=== PATIENT | female | born 1945 | race Caucasian/White ===

== ENCOUNTER 2022-03-09 09:31 | Inpatient (IN) ==
[2022-03-09] MEDS ORDERED: ALBUTEROL/IPRATROPIUM 3 ML NEB RESP TX STA (10:09)
[2022-03-09] MEDS ORDERED: methylPREDNISolone SOD SUC 125 MG/2 ML VIAL IV STA (10:09)
[2022-03-09 12:09] LABS: Basophils % 0.5 % (0.0-0.8); Eosinophils # 0.3 10*3/uL (0.0-0.87); Eosinophils % 4.8 % (0.00-10.9); Hematocrit 33.2 VOL% (35.7-47.0); Immature Granulocytes % 0.5 %; Immature Granulocytes Absolute 0.03 #; Mean Corpuscular HGB Conc 33.1 GM/DL (32-36); Mean Corpuscular Volume 102.8 FL (87-102); Mean Platelet Volume 9.8 FL (9.6-12.0); Monocytes # 0.7 10*3/uL (0.11-0.8); Monocytes % 11.2 % (1.7-12.7); Platelet Count 210 T/CUMM (130-400); Red Blood Count 3.23 MC/CUMM (3.8-5.5); Red Cell Distribution Width 14.7 % (9.3-17.3); White Blood Count 6.5 T/CUMM (4-12)
[2022-03-09 12:28] LABS: Albumin 3.1 G/DL (3.4-5.0); Bilirubin,Total 0.4 MG/DL (0.20-1.00); Calcium 8.7 MG/DL (8.5-10.1); Osmolality,Calculated 292.6 MOS/KG (273-304); Potassium 3.6 MMOL/L (3.5-5.1); Total Protein 6.8 G/DL (6.4-8.2)
[2022-03-09] MEDS ORDERED: ONDANSETRON 4 MG/2 ML VIAL IV PRN (13:29)
[2022-03-09] MEDS: cefTRIAXone 1,000 MG in SODIUM CHLORIDE 0.9% 100 ML IV SCH (14:35)
[2022-03-09] MEDS: ACETAMINOPHEN 325 MG TABLET PO PRN (15:07)
[2022-03-09] MEDS ORDERED: ALBUTEROL 2.5 MG/3 ML NEB RESP TX STA (15:22)
[2022-03-09] MEDS: AZITHROMYCIN INJ 500 MG in SODIUM CHLORIDE 0.9% 250 ML IV SCH (15:44)
[2022-03-09] MEDS: ALBUTEROL/IPRATROPIUM 3 ML NEB RESP TX SCH (19:17)
[2022-03-09] MEDS: allopurinoL 100 MG TABLET PO SCH (21:10)
[2022-03-09] MEDS: DOCUSATE SODIUM 100 MG CAPSULE PO SCH (21:10)
[2022-03-09] MEDS: OMEPRAZOLE ODT 20 MG TABLET PO SCH (22:20)
[2022-03-09] MEDS: calcitrioL 0.25 MCG CAPSULE PO SCH (22:20)
[2022-03-10] MEDS: ALBUTEROL/IPRATROPIUM 3 ML NEB RESP TX SCH ×4 (01:21→19:45)
[2022-03-10] MEDS: ACETAMINOPHEN 325 MG TABLET PO PRN ×2 (01:35→10:02)
[2022-03-10] MEDS: DEXTROMETHORPHAN ER 6 MG/ML 90 ML/BOTTLE PO PRN (10:01)
[2022-03-10] MEDS: DULoxetine 30 MG CAPSULE PO SCH (10:02)
[2022-03-10] MEDS: DOCUSATE SODIUM 100 MG CAPSULE PO SCH ×2 (10:02→21:02)
[2022-03-10] MEDS: calcitrioL 0.25 MCG CAPSULE PO SCH ×2 (10:02→21:02)
[2022-03-10] MEDS: allopurinoL 100 MG TABLET PO SCH ×2 (10:02→21:02)
[2022-03-10] MEDS: LOSARTAN 50 MG TABLET PO SCH (10:03)
[2022-03-10] MEDS: OMEPRAZOLE ODT 20 MG TABLET PO SCH ×2 (10:03→21:02)
[2022-03-10] MEDS: DILTIAZEM CD 180 MG CAPSULE PO SCH (10:03)
[2022-03-10] MEDS: FUROSEMIDE 40 MG/4 ML VIAL IV SCH (10:06)
[2022-03-10] MEDS: cefTRIAXone 1,000 MG in SODIUM CHLORIDE 0.9% 100 ML IV SCH (15:19)
[2022-03-10] MEDS: AZITHROMYCIN INJ 500 MG in SODIUM CHLORIDE 0.9% 250 ML IV SCH (16:41)
[2022-03-11] MEDS: ALBUTEROL/IPRATROPIUM 3 ML NEB RESP TX SCH ×4 (00:33→19:23)
[2022-03-11] MEDS: DEXTROMETHORPHAN ER 6 MG/ML 90 ML/BOTTLE PO PRN (03:51)
[2022-03-11 08:36] LABS: Basophils % 0.3 % (0.0-0.8); Eosinophils # 0.3 10*3/uL (0.0-0.87); Eosinophils % 3.3 % (0.00-10.9); Hematocrit 33.1 VOL% (35.7-47.0); Hemoglobin 10.6 GM/DL (12.0-16.0); Immature Granulocytes % 0.3 %; Immature Granulocytes Absolute 0.03 #; Lymphocytes # 1.3 10*3/uL (1.4-4.0); Lymphocytes % 14.1 % (21.3-54.2); Mean Corpuscular Volume 105.8 FL (87-102); Mean Platelet Volume 9.2 FL (9.6-12.0); Monocytes % 11.2 % (1.7-12.7); Neutrophils % 70.8 % (38.7-73.9); Platelet Count 218 T/CUMM (130-400); Red Blood Count 3.13 MC/CUMM (3.8-5.5); Red Cell Distribution Width 14.8 % (9.3-17.3)
[2022-03-11] MEDS: DOCUSATE SODIUM 100 MG CAPSULE PO SCH ×2 (08:45→21:00)
[2022-03-11] MEDS: FUROSEMIDE 40 MG/4 ML VIAL IV SCH (08:45)
[2022-03-11] MEDS: DULoxetine 30 MG CAPSULE PO SCH (08:45)
[2022-03-11] MEDS: OMEPRAZOLE ODT 20 MG TABLET PO SCH ×2 (08:46→20:52)
[2022-03-11] MEDS: allopurinoL 100 MG TABLET PO SCH ×2 (08:46→20:52)
[2022-03-11] MEDS: DILTIAZEM CD 180 MG CAPSULE PO SCH (08:46)
[2022-03-11] MEDS: calcitrioL 0.25 MCG CAPSULE PO SCH ×2 (08:47→20:52)
[2022-03-11] MEDS: LOSARTAN 50 MG TABLET PO SCH (08:47)
[2022-03-11 09:02] LABS: Bilirubin,Total 0.4 MG/DL (0.20-1.00); Osmolality,Calculated 294.7 MOS/KG (273-304)
[2022-03-11] MEDS ORDERED: POTASSIUM CHLORIDE 20 MEQ TABLET PO PRN (09:33)
[2022-03-11] MEDS ORDERED: POTASSIUM CHLORIDE 20 MEQ TABLET PO ONE (09:33)
[2022-03-11] MEDS: POTASSIUM CHLORIDE 20 MEQ TABLET PO PRN ×4 (09:56→16:25)
[2022-03-11] MEDS: ASPIRIN CHEW 81 MG TABLET PO SCH (11:55)
[2022-03-11] MEDS ORDERED: BENZONATATE 100 MG CAPSULE PO PRN (12:12)
[2022-03-11] MEDS: methylPREDNISolone SOD SUC 40 MG/1 ML VIAL IV SCH ×2 (12:45→20:55)
[2022-03-11] MEDS: cefTRIAXone 1,000 MG in SODIUM CHLORIDE 0.9% 100 ML IV SCH (12:45)
[2022-03-11] MEDS: AZITHROMYCIN 250 MG TABLET PO SCH (14:07)
[2022-03-11] MEDS: ATORVASTATIN 20 MG TABLET PO SCH (20:52)
[2022-03-12] MEDS: ALBUTEROL/IPRATROPIUM 3 ML NEB RESP TX SCH ×4 (00:04→19:45)
[2022-03-12 04:59] LABS: Basophils % 0.1 % (0.0-0.8); Hematocrit 33.2 VOL% (35.7-47.0); Hemoglobin 10.8 GM/DL (12.0-16.0); Immature Granulocytes % 0.5 %; Immature Granulocytes Absolute 0.04 #; Lymphocytes # 0.5 10*3/uL (1.4-4.0); Lymphocytes % 6.7 % (21.3-54.2); Mean Corpuscular HGB Conc 32.5 GM/DL (32-36); Mean Corpuscular Volume 102.8 FL (87-102); Monocytes # 0.3 10*3/uL (0.11-0.8); Monocytes % 4.3 % (1.7-12.7); Neutrophils % 88.4 % (38.7-73.9); Platelet Count 223 T/CUMM (130-400); Red Blood Count 3.23 MC/CUMM (3.8-5.5); Red Cell Distribution Width 14.3 % (9.3-17.3); White Blood Count 7.5 T/CUMM (4-12)
[2022-03-12 05:32] LABS: Alanine Aminotransferase 26 U/L (13-56); Albumin 2.8 G/DL (3.4-5.0); Alkaline Phosphatase 123 U/L (45-117); Aspartate Amino Transferase 19 U/L (0-37); Bilirubin,Total < 0.39 MG/DL (0.20-1.00); Blood Urea Nitrogen 25 MG/DL (7-18); Calcium 7.6 MG/DL (8.5-10.1); Carbon Dioxide 24 MMOL/L (21-32); Chloride 108 MMOL/L (98-107); Glucose 152 MG/DL (74-106); Osmolality,Calculated 289.1 MOS/KG (273-304); Potassium 4.6 MMOL/L (3.5-5.1); Sodium 142 MMOL/L (136-145); Total Protein 6.9 G/DL (6.4-8.2)
[2022-03-12] MEDS: ASPIRIN CHEW 81 MG TABLET PO SCH (08:48)
[2022-03-12] MEDS: DILTIAZEM CD 180 MG CAPSULE PO SCH (08:49)
[2022-03-12] MEDS: allopurinoL 100 MG TABLET PO SCH ×2 (08:49→20:41)
[2022-03-12] MEDS: DOCUSATE SODIUM 100 MG CAPSULE PO SCH ×2 (08:49→20:40)
[2022-03-12] MEDS: OMEPRAZOLE ODT 20 MG TABLET PO SCH ×2 (08:49→20:41)
[2022-03-12] MEDS: LOSARTAN 50 MG TABLET PO SCH (08:49)
[2022-03-12] MEDS: AZITHROMYCIN 250 MG TABLET PO SCH (08:49)
[2022-03-12] MEDS: FUROSEMIDE 40 MG/4 ML VIAL IV SCH (08:51)
[2022-03-12] MEDS: methylPREDNISolone SOD SUC 40 MG/1 ML VIAL IV SCH ×2 (08:51→21:43)
[2022-03-12] MEDS: cefTRIAXone 1,000 MG in SODIUM CHLORIDE 0.9% 100 ML IV SCH (08:52)
[2022-03-12] MEDS: DULoxetine 30 MG CAPSULE PO SCH (08:58)
[2022-03-12] MEDS: calcitrioL 0.25 MCG CAPSULE PO SCH ×2 (10:18→20:41)
[2022-03-12] MEDS: guaiFENesin 200 MG/10 ML UDCUP PO PRN ×2 (15:11→21:44)
[2022-03-12] MEDS: BENZONATATE 100 MG CAPSULE PO SCH ×2 (15:11→20:41)
[2022-03-12] MEDS: ATORVASTATIN 20 MG TABLET PO SCH (20:41)
[2022-03-12] MEDS ORDERED: BISACODYL 5 MG TABLET PO PRN (21:45)
[2022-03-13] MEDS: ALBUTEROL/IPRATROPIUM 3 ML NEB RESP TX SCH ×2 (00:45→07:29)
[2022-03-13] MEDS: guaiFENesin 200 MG/10 ML UDCUP PO PRN ×2 (04:31→08:45)
[2022-03-13 06:03] LABS: Basophils % 0.1 % (0.0-0.8); Hematocrit 34.3 VOL% (35.7-47.0); Hemoglobin 11.1 GM/DL (12.0-16.0); Immature Granulocytes % 0.6 %; Immature Granulocytes Absolute 0.06 #; Lymphocytes # 0.8 10*3/uL (1.4-4.0); Lymphocytes % 8.6 % (21.3-54.2); Mean Corpuscular HGB Conc 32.4 GM/DL (32-36); Mean Corpuscular Volume 100.6 FL (87-102); Mean Platelet Volume 9.9 FL (9.6-12.0); Monocytes # 0.7 10*3/uL (0.11-0.8); Neutrophils % 83.7 % (38.7-73.9); Platelet Count 291 T/CUMM (130-400); Red Blood Count 3.41 MC/CUMM (3.8-5.5); Red Cell Distribution Width 13.9 % (9.3-17.3); White Blood Count 9.5 T/CUMM (4-12)
[2022-03-13 06:19] LABS: Alanine Aminotransferase 32 U/L (13-56); Albumin 2.9 G/DL (3.4-5.0); Alkaline Phosphatase 130 U/L (45-117); Aspartate Amino Transferase 19 U/L (0-37); Bilirubin,Total < 0.39 MG/DL (0.20-1.00); Blood Urea Nitrogen 30 MG/DL (7-18); Calcium 7.5 MG/DL (8.5-10.1); Carbon Dioxide 24 MMOL/L (21-32); Chloride 106 MMOL/L (98-107); Glucose 147 MG/DL (74-106); Osmolality,Calculated 287.4 MOS/KG (273-304); Sodium 140 MMOL/L (136-145); Total Protein 7.3 G/DL (6.4-8.2)
[2022-03-13] MEDS: AZITHROMYCIN 250 MG TABLET PO SCH (08:45)
[2022-03-13] MEDS: allopurinoL 100 MG TABLET PO SCH (08:46)
[2022-03-13] MEDS: BENZONATATE 100 MG CAPSULE PO SCH (08:46)
[2022-03-13] MEDS: OMEPRAZOLE ODT 20 MG TABLET PO SCH (08:46)
[2022-03-13] MEDS: calcitrioL 0.25 MCG CAPSULE PO SCH (08:46)
[2022-03-13] MEDS: DOCUSATE SODIUM 100 MG CAPSULE PO SCH (08:46)
[2022-03-13] MEDS: ASPIRIN CHEW 81 MG TABLET PO SCH (08:46)
[2022-03-13] MEDS: DULoxetine 30 MG CAPSULE PO SCH (08:48)
[2022-03-13] MEDS: LOSARTAN 50 MG TABLET PO SCH (08:48)
[2022-03-13] MEDS: DILTIAZEM CD 180 MG CAPSULE PO SCH (08:48)
[2022-03-13] MEDS: FUROSEMIDE 40 MG/4 ML VIAL IV SCH (08:51)
[2022-03-13] MEDS: methylPREDNISolone SOD SUC 40 MG/1 ML VIAL IV SCH (08:51)
[2022-03-13] MEDS: cefTRIAXone 1,000 MG in SODIUM CHLORIDE 0.9% 100 ML IV SCH (08:55)
[2022-03-13 11:55] VITALS: BP 115/70
== END 2022-03-13 14:17 | disposition home health service (06) | DRG 196 ==
LOC: N.ED 09:31 → N.EDINP 13:29 → N.2E 23:43
PROVIDERS: ADMIT Family Medicine; ATTEND Family Medicine